=== PATIENT | female | born 1990 | race Caucasian/White ===

== ENCOUNTER 2020-11-24 09:23 | Outpatient (RCR) | payer OTHER, SELFPAY ==
[2020-11-24 09:46] VITALS: RESP 16; TEMP 36; BMI 42.9
[2020-11-24 10:05] VITALS: BP 167/114; PULSE 82; BMI 42.9
--- NOTE | 2020-11-24 14:30 | HP.PCM_ITS ---
History of Present Illness Date of Service: 11/24/20 Chief Complaint: left ring finger 2nd degree burn- worker's comp History of Wound: Hetal is a pleasant 30-year-old female with a past medical history of hypertension who presents to the wound healing center today for initial evaluation of a second-degree burn to her left ring finger. This is a workers comp injury. Her injury occurred on 11/10/[address] place of employment ([email or web address]). She states her manufacturing finance manager began talking to her and she startled, accidentally dipping the tip of her left ring finger into a 435 degree salt bath. The area quickly became swollen and blistered. She presented to the emergency department for evaluation. Her Tdap was updated at that time. She was given tramadol for pain and mupirocin ointment and instructed to perform daily dressing changes using mupirocin. The blister was later drained on 11/13/2020 at occupational health in [place]. She is cleansing the area several times daily with soap and water. She denies any fever, chills, nausea, vomiting, or diarrhea. She reports only a small amount of bleeding which occurs when she bends her finger repeatedly. Her left ring finger is swollen and erythematous distally, with tenderness to palpation. She denies any purulent/malodorous drainage. She has not been prescribed any recent oral antibiotics. She has some decreased sensation to the left ring finger, as well as sensitivity to temperature changes. She has been under work restrictions which include avoidance of work involving the left hand. 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 [facility] Medical History (Updated 11/24/20 @ 15:06 by Dara Madrid NP, [employer] INSTRUCTOR-[employer]) Encounter for immunization Toxic effect of other specified substances, accidental (unintentional), initial encounter Home Medications sulfamethoxazole-trimethoprim [Bactrim DS] 1 tab PO Q12H 7 Days #14 tab 11/24/20 [Rx Last Taken Unknown] Allergy/AdvReac Type Severity Reaction Status Date / Time carbinoxamine [From Rondec] AdvReac Other Verified 11/24/20 10:02 pseudoephedrine [From Ronde] AdvReac Other Verified 11/24/20 10:02 Social History Smoking Status: Current every day smoker ROS Constitutional Constitutional: Denies chills, fever(s) or night sweats Eyes Eyes: Denies change in vision or double vision ENT HEENT: Denies lip swelling or tongue swelling Cardiovascular Cardiovascular: Denies chest pain, leg edema or palpitations Respiratory/Chest Respiratory/Chest: Denies cough, shortness of breath at rest, shortness of breath with exertion or wheezing Gastrointestinal Gastrointestinal: Denies diarrhea, nausea or vomiting Genitourinary Genitourinary: Denies dysuria or hematuria Musculoskeletal Musculoskeletal: Reports numbness and tingling; Denies abnormal gait, extremity pain or muscle weakness Integumentary Integumentary: Reports wounds; Denies rash Neurologic Neurologic: Denies abnormal gait, abnormal speech or focal weakness Endocrine Endocrinology: Denies cold intolerance, heat intolerance, polydipsia or polyuria Hematologic/Lymphatic Hematologic/Lymphatic: Denies easy bleeding or easy bruising Vital Signs Vital Signs Vital Signs: 11/24/20 09:46 11/24/20 10:05 Temperature 96.8 F L Temperature Source Temporal Pulse Rate 82 Respiratory Rate 16 Blood Pressure 167/114 H Blood Pressure Mean 131 Blood Pressure Source Monitor Blood Pressure Position Supine Blood Pressure Location Right Arm Oxygen Delivery Method Room Air Physical Exam Const alert, no apparent distress and healthy appearing General Appearance: cooperative, comfortable and well kempt HEENT Head and Scalp: normocephalic and atraumatic Eyes EOMs intact bilaterally Neck supple and no JVD Resp normal respiratory effort, normal air movement and no use of accessory muscles Auscultation: clear to auscultation bilaterally; Negative for crackles, rales, rhonchi or wheezes Cardio regular rate and regular rhythm GI normal to inspection, nondistended, normoactive bowel sounds Extremity normal capillary refill, no joint enlargement, no calf tenderness and no pedal edema General Extremity: edema left upper extremity (Left ring finger) mild; Negative for clubbing or cyanosis Peripheral Pulses: Yes radial pulses present bilateral 2+ Left Upper Extremity: hand and digits ROM (full ROM L ring finger) and other (L ring finger TTP ) Skin Wounds: wounds noted No malodorous, open and surrounding erythema Wound Narrative: Small ulceration of left distal ring finger with scant slough and devitalized tissue present. Tender to palpation. Moderate periwound erythema and mild periwound swelling. No malodorous/purulent drainage. No tunneling, undermining, or probing to bone. Fingernail is firmly attached without compromise. Neuro oriented x3, moves all extremities and no focal motor deficits Psych mental status grossly normal, cooperative and affect normal Debridement Note Debridement Note Post-Debridement Measurements and Additional Note: Post-Debridement Measurements/Treatment WC - Nurse 2 - General Ulcer CM Notes Start: 11/24/20 09:46 Freq: Status: Active Protocol: Activity Type Activity Date Activity User E-Sign Co-Sign Detail Recorded Client Recorded Date Recorded By Document 11/24/20 13:38 [address] [id number] 11/24/20 13:40 PL 11/24/20 13:38 Wound Center Nurse 2 #1- L RING FINGER (BURN) -Time 10:17 -Correct Patient Yes -Correct Side, Site, Position Yes -Correct Procedure Yes -Procedure Performed Yes -Type of Procedure Debridement -Clinical Debridement Subcutaneous -Tissue Removed Subcutaneous -Post Debridement (cm) - Length 0.1 -Post Debridement (cm) - Width 0.4 -Post Debridement (cm) - Depth 0.1 -Total Square (Post) (cm) 0.04 -Area of Debridement (cm) - Length 0.1 -Area of Debridement (cm) - Width 0.4 -Total Square (Area) (cm) 0.04 -Tunneling No -Undermining/Tunneling No -Circular Undermining No -Wound/Ulcer Outcome Not Healed -Ulcer Cleansing Rinsed/ Irrigated with Saline -Foul Odor after Cleansing No -Bioengineered Tissue No -Bleeding Controlled with Pressure -Treatment Response Procedure Tolerated Well -Debridement - Subq, 1st 20sq cm Yes Pain Scale: 0-10 Numeric Is Patient Pain Free? Yes - Nurse 3 - General Ulcer D/C NN Start: 11/24/20 09:46 Freq: Status: Active Protocol: Activity Type Activity Date Activity User E-Sign Co-Sign Detail Recorded Client Recorded Date Recorded By Document 11/24/20 10:36 [facility] [id number] 11/24/20 10:37 [facility] 11/24/20 10:36 Wound Care Nurse 3 #1- L RING FINGER (BURN) -Ulcer Cleansing Rinsed/ Irrigated with Saline -Foul Odor after Cleansing No -Primary Dressing Applied C Hydrogel ($), NonAdherent Contact Layer -Primary Dressing Covered/Secured with Dry Gauze, Secured with Tape -Other Covering DRSG PER BENJAMIN BUNDY Treatment Response Procedure Tolerated Well Pain Scale: 0-10 Numeric Is Patient Pain Free? Yes WC - Visit Discharge Discharge Condition Stable Ambulatory Status Ambulatory Transportation Private Auto Wound debrided: Distal left ring finger Laterality: Left Type of Debridement: Excisional debridement Anesthesia Used: 5% Lidocaine Gel and Cetacaine Depth: in the subcutaneous layer Percentage of wound debrided: 100 Instrument Used: 3mm curette Tissue Removed: Slough and devitalized tissue Severity: Fat Layer Exposed Amount of bleeding with debridement: Mild Bleeding Controlled with: Pressure Patient tolerated procedure: Patient tolerated procedure well Assessment & Plan Assessment/Plan (1) Burn of finger of left hand, second degree: Status: Acute Code(s): T23.222A - Burn of second degree of single left finger (nail) except thumb, initial encounter Qualifiers: Encounter type: initial encounter Qualified Code(s): T23.222A - Burn of second degree of single left finger (nail) except thumb, initial encounter Plan: Debridement performed today in clinic as annotated above. Hydrogel and Adaptic applied. At home wound-care instructions: Begin hydrogel and Adaptic dressings. Change dressing once daily or more frequently as needed due to contamination. Wash wounds daily with antibacterial soap and water, rinse and dry thoroughly before each dressing change. Work restrictions: The patient may return to work with restrictions. She should avoid work involving the left hand. She should keep her wound dressing clean and dry at all times when working. Diet: Patient encouraged to increase protein intake. Smoking: The risks of smoking and benefits of smoking cessation were discussed with the patient today. The patient is encouraged to quit smoking. If smoking cessation aids are desired, the patient should contact their primary care provider to discuss appropriate options. Labs/cultures/imaging: Cultures deferred today due to small wound size and absence of drainage. Patient started on Bactrim 800-160 mg p.o. every 12 hours x7 days. Follow-up: Return to wound clinic in 1 week for re-evaluation. Return sooner or report to the emergency room should symptoms worsen, or new symptoms arise. [employer] and C9 form completed. Note: [employer] speech recognition state highway police officer software was used to create portions of this document. Sound-alike and misspelled words, as well as other state highway police officer errors may be contained in the documentation. Charges/Coding Visit Charges Office Visits / Consults: 48135 OV L4 New Procedures Integumentary [id number]: [id number] Latesha subq tissue 20 sq cm/<
== END 2020-11-24 23:59 ==
LOC: WC 09:23
PROVIDERS: Visit Provider Nurse Practitioner Family
DX: T23.222A Burn of second degree of single left finger (nail) except thumb, initial encounter (principal); X12.XXXA Contact with other hot fluids, initial encounter; Y93.89 Activity, other specified; Y92.89 Other specified places as the place of occurrence of the external cause; Y99.0 Civilian activity done for income or pay; I10 Essential (primary) hypertension; F17.200 Nicotine dependence, unspecified, uncomplicated
CPT/HCPCS: 11042; 99213; G0463

== ENCOUNTER 2020-12-01 10:00 | Outpatient (RCR) | payer SELFPAY ==
[2020-11-25 00:59] VITALS: BP 167/114; PULSE 82; RESP 16; TEMP 36
[2020-12-01 09:58] VITALS: BP 181/126; PULSE 91; TEMP 36.1; BMI 42.9
--- NOTE | 2020-12-01 10:25 | PCM.WC.PN ---
History of Present Illness Date of Service: 12/01/20 Chief Complaint: left ring finger 2nd degree burn- worker's comp History of Wound: Hetal is a pleasant 30-year-old female with a past medical history of hypertension who presents to the wound healing center today for initial evaluation of a second-degree burn to her left ring finger. This is a workers comp injury. Her injury occurred on 11/10/2020 at her place of employment ([employer]). She states her patient safety manager began talking to her and she startled, accidentally dipping the tip of her left ring finger into a 435 degree salt bath. The area quickly became swollen and blistered. She presented to the emergency department for evaluation. Her Tdap was updated at that time. She was given tramadol for pain and mupirocin ointment and instructed to perform daily dressing changes using mupirocin. The blister was later drained on 11/13/2020 at occupational health in [place]. She is cleansing the area several times daily with soap and water. She denies any fever, chills, nausea, vomiting, or diarrhea. She reports only a small amount of bleeding which occurs when she bends her finger repeatedly. Her left ring finger is swollen and erythematous distally, with tenderness to palpation. She denies any purulent/malodorous drainage. She has not been prescribed any recent oral antibiotics. She has some decreased sensation to the left ring finger, as well as sensitivity to temperature changes. She has been under work restrictions which include avoidance of work involving the left hand. 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 Progress of Wound: The patient's left ring finger wound is healed today. She has mild erythema of the left distal ring finger, with no appreciable swelling. She continues to have mild tenderness to palpation. She has not had drainage from the left finger wound for approximately the past 5 days. She has 1 more day left in her course of Bactrim. The patient denies fever, chills, nausea, vomiting, or diarrhea. The patient has not had increased redness, swelling, or purulent/malodorous drainage from affected area. The patient feels ready to return to full work duties. She denies any concerns with returning to unrestricted work. Objective Data Objective Data Vital Signs: Vital Signs Temp Pulse Resp BP 97.0 F L 91 16 181/126 H 12/01/20 09:58 12/01/20 09:58 11/25/20 00:59 12/01/20 09:58 Weight: 250 lb Body Mass Index (BMI) 42.9 Assessment & Plan Assessment/Plan (1) Burn of finger of left hand, second degree: QUALIFIERS: Encounter type: initial encounter Qualified Code(s): T23.222A - Burn of second degree of single left finger (nail) except thumb, initial encounter PLAN: The patient's left ring finger burn wound is healed today. Work restrictions: The patient may return to work without restrictions on 12/04/2020. She is advised to cover the left distal ring finger with a Band-Aid when working, so long as this does not interfere with her ability to perform her work-related tasks. Should she identify elements of her work-related tasks that are bothersome to the left ring finger, she was instructed to follow-up with occupational medicine as needed. Follow-up: The patient is discharged from the wound healing center today. Return to wound clinic as needed should the left ring finger wound reopened. Follow-up with occupational medicine as needed. [employer] updated. Note: [employer] speech recognition incinerator plant general supervisor software was used to create portions of this document. Sound-alike and misspelled words, as well as other incinerator plant general supervisor errors may be contained in the documentation. Charges/Coding Visit Charges Office Visits / Consults: [id number] OV L3 Est Physical Exam Const alert, no apparent distress and healthy appearing General Appearance: cooperative, comfortable and well kempt HEENT Head and Scalp: normocephalic and atraumatic Eyes EOMs intact bilaterally Neck supple and no JVD Extremity normal capillary refill and no joint enlargement General Extremity: Negative for clubbing, cyanosis or edema Peripheral Pulses: Yes radial pulses present left 2+ Left Upper Extremity: hand and digits ROM (full ROM L ring finger) and other (L ring finger TTP ) Skin Wounds: Negative for wounds noted Neuro oriented x3, moves all extremities and no focal motor deficits Psych mental status grossly normal, cooperative and affect normal Debridement Note Debridement Note No debridement was completed: No debridement was completed today
== END 2020-12-01 10:17 | disposition home or self-care (01) ==
LOC: WC 10:00
PROVIDERS: Visit Provider Nurse Practitioner Family
DX: Z09 Encounter for follow-up examination after completed treatment for conditions other than malignant neoplasm (principal); T23.222A Burn of second degree of single left finger (nail) except thumb, initial encounter; X12.XXXA Contact with other hot fluids, initial encounter; Y93.89 Activity, other specified; Y92.89 Other specified places as the place of occurrence of the external cause; Y99.0 Civilian activity done for income or pay
CPT/HCPCS: 99213; G0463